=== PATIENT | female | born 1985 | race Caucasian/White ===

== ENCOUNTER → 2017-06-03 | Outpatient (CLI) | payer OTHER ==
[~2017-06-03] MED LIST: ASPI1TAB31 PO; ELET20TA PO; NORE5TAB2 PO; SUMA20SP NS; TOPI50TA35 PO
[2017-06-03 15:55] LABS: HEMATOCRIT 42.4 % (34.6-47.8); HEMOGLOBIN 14.3 g/dL (11.7-16.4); WHITE BLOOD COUNT 5.5 x10^3/uL (3.4-10)
== END | disposition home or self-care (01) ==
LOC: STAR 15:00
PROVIDERS: ATTEND Obstetrics & Gynecology
DX: Z01.818 Encounter for other preprocedural examination (principal); N93.9 Abnormal uterine and vaginal bleeding, unspecified; Z98.890 Other specified postprocedural states
CPT/HCPCS: 36415; 84703; 85025